=== PATIENT | female | born 1990 | race Caucasian/White ===

== ENCOUNTER 2024-04-19 20:21 | Emergency (ER) | payer BC, SELFPAY ==
--- NOTE | ~2024-04-19 | XR_ITS ---
EXAMINATION: XR ANKLE, LEFT CLINICAL INFORMATION: Swelling and tenderness. COMPARISON: None available. TECHNIQUE: AP, lateral, and mortise views of the left ankle. FINDINGS: No evidence of fracture or subluxation. Soft tissue swelling around the ankle. No unexpected radiopaque foreign bodies. XR/XR ankle LT min 3V IMPRESSION: 1. No acute fracture or malalignment. 2. Soft tissue swelling around the ankle.
--- NOTE | ~2024-04-19 | US_ITS ---
EXAMINATION: US VENOUS ULTRASOUND WITH DOPPLER LOWER EXTREMITY, LEFT CLINICAL INFORMATION: Positive d-dimer with ankle swelling COMPARISON: None available. TECHNIQUE: Ultrasound of the deep veins is performed from the hip to the calf with compression sonography and color and pulse Doppler assessment. Spectral analysis with color-flow imaging is performed. FINDINGS: There is normal venous compression and respiratory variation and augmented flow. The visualized common femoral vein, superficial femoral vein, profunda femoral vein, popliteal vein, and the trifurcation region shows no evidence of deep venous thrombosis. There is no significant popliteal fossa cyst. If the patient's symptoms persist, followup ultrasound in 5 days 7 days might be of value to exclude proximal propagation from a non-visualized calf vein. US/US venous duplex LE LT IMPRESSION: No DVT demonstrated in the left lower extremity.
[2024-04-19 21:22] VITALS: BP 149/107; PULSE 100; RESP 18; TEMP 36.9; O2SAT 99; BMI 32.9
[2024-04-20] VITALS: BP 133/83; PULSE 96; RESP 16; TEMP 36.8; O2SAT 97
--- NOTE | 2024-04-20 01:12 | ED_ITS ---
HPI - Extremity Problem General Chief complaint: Extremity Injury, Lower Stated complaint: Swelling in L ankle Time Seen by Provider: 04/20/24 00:50 Source: patient Mode of arrival: ambulatory Limitations: no limitations History of Present Illness ED Provider: leroy MOLINA Narrative: Patient with no significant past medical history was walking this evening came back and noticed swelling and tenderness in medial aspect of the Achilles tendon swelling has improved while sitting in the ER no calf tenderness or swelling patient ambulatory in steady gait had x-ray done prior to my evaluation which was negative Related Data Allergies Allergy/AdvReac Type Severity Reaction Status Date / Time No Known Allergies Allergy Verified 04/19/24 21:26 Review of Systems Review of Systems: Yes all other systems are reviewed and are negative [facility] Social History Social History Advance Directives: No Advance Directives Information Provided: Yes Do you have a plan to hurt others: No Plan Physical Exam Vital Signs: Vital Signs: Last Vital Signs Temp 98.2 F 04/20/24 00:00 Pulse 96 04/20/24 00:00 Resp 16 04/20/24 00:00 BP 133/83 04/20/24 00:00 Pulse Ox 97 04/20/24 00:00 O2 Del Method Room Air 04/20/24 00:00 BMI result Body Mass Index 32.9 Appearance: Alert. Oriented X3. No acute distress. Neck: Normal inspection. Neck supple. CVS: Normal heart rate and rhythm. Pulses normal. Respiratory: No respiratory distress. Equal air entry bilateral, Abdomen: Soft and nontender. Bowel sounds are present, Skin: Skin warm and dry. Normal skin color. Normal skin turgor. Extremities: No lower extremity edema. No calf tenderness mild soft tissue tenderness at medial aspect of the Achilles tendon and ankle Homans sign negative no deformity neurovascular intact Neuro: Oriented X 3. No motor deficit. Medical Decision Making Medical Decision Making [facility] Narrative: Patient clinically with left ankle sprain no predisposing factor/prolonged rest for DVT no hypercoagulable state no tenderness in the calf area will do D-dimer test as patient suspicious of blood clot as her father has a history of DVTs Patient's D-dimer is elevated to 659 all the Homans sign is negative there is no calf tenderness will do venous Doppler to rule out DVT Lab Data [facility] Lab Attestation statement: I reviewed the patient's lab results. Labs: Lab Results 04/20/24 Range/Units 01:20 D-Dimer High Sensitivty 659 NG/ML Independent Interpretation I performed an independent interpretation of an: Plain X-Ray Interpretation: Negative Radiology Impression Discussion of test interpretation with radiology: I have reviewed the radiologist's reading. Discharge Plan Discharge Clinical Impression: Ankle sprain and strain, Elevated d-dimer Patient Disposition: Still a Patient Print Language: Nepali
[2024-04-20 01:36] LABS: D Dimer High Sensitivity 659 NG/ML
--- NOTE | 2024-04-20 01:45 | PC.NURSE ---
Lab work ordered, pt awaiting ultra sound, left leg tender in calf area when flexing footing, no redness noted at this time.
--- NOTE | 2024-04-20 01:50 | PC.NURSE ---
Notified Dr. Manjarrez of pt concerns, d-Dimer ordered and ultra sound of the leg.
[2024-04-20 02:00] VITALS: BP 137/90; PULSE 97; RESP 16; TEMP 37.1; O2SAT 99
[2024-04-20 03:58] VITALS: BP 125/73; PULSE 88; RESP 17; TEMP 36.4; O2SAT 98
[2024-04-20 04:35] VITALS: BP 125/73; PULSE 88; RESP 17; TEMP 36.4; O2SAT 98
--- NOTE | 2024-04-20 04:36 | PC.NURSE ---
Robert wrap applied by DR. Briceño, reviewed discharge instructions with pt. pt verbalized understanding.
== END 2024-04-20 04:36 | disposition home or self-care (01) ==
PROVIDERS: Emergency Provider Internal Medicine; PCP Internal Medicine
DX: S96.912A Strain of unspecified muscle and tendon at ankle and foot level, left foot, initial encounter (principal); X50.1XXA Overexertion from prolonged static or awkward postures, initial encounter; R79.89 Other specified abnormal findings of blood chemistry; M79.662 Pain in left lower leg; Y93.01 Activity, walking, marching and hiking; Y92.414 Local residential or business street as the place of occurrence of the external cause; Y99.9 Unspecified external cause status
CPT/HCPCS: 36415; 73610; 85379; 93971; 99284